=== PATIENT | male | born 1995 | race Caucasian/White ===

== ENCOUNTER 2017-09-28 20:10 | Emergency (ER) | payer SELFPAY ==
[2017-09-28] MEDS ORDERED: Bacitracin Zinc 1 Packet ONE (20:56)
== END 2017-09-28 21:00 | disposition home or self-care (01) ==
LOC: BURERS 20:10
DX: S61.012A Laceration without foreign body of left thumb without damage to nail, initial encounter (principal); W26.8XXA Contact with other sharp object(s), not elsewhere classified, initial encounter
CPT/HCPCS: 12001